=== PATIENT | female | born 1935 | race Caucasian/White ===

== ENCOUNTER → 2017-02-11 | Outpatient (CLI) | payer MEDICARE, OTHER ==
[~2017-02-11] MED LIST: OMNIPAQUE 350 MG/ML, 100ML BOTTLE ONE
== END | disposition home or self-care (01) ==
LOC: CFH 08:47
PROVIDERS: ATTEND Specialist
DX: R19.00 Intra-abdominal and pelvic swelling, mass and lump, unspecified site (principal)
CPT/HCPCS: 74177; Q9967

== ENCOUNTER → 2017-06-03 | Outpatient (CLI) | payer MEDICARE, OTHER | END | disposition home or self-care (01) | LOC: RAD 16:36 | PROVIDERS: ATTEND Internal Medicine | DX: R22.1 Localized swelling, mass and lump, neck (principal) | CPT/HCPCS: 36415; 71020; 82565 ==

== ENCOUNTER → 2017-06-10 | Outpatient (CLI) | payer MEDICARE, OTHER | END | disposition home or self-care (01) | LOC: CFH 09:00 | PROVIDERS: ATTEND Internal Medicine | DX: R59.0 Localized enlarged lymph nodes (principal); E03.1 Congenital hypothyroidism without goiter | CPT/HCPCS: 70491; Q9967 ==

== ENCOUNTER → 2017-06-29 | Outpatient (CLI) | payer MEDICARE, OTHER | END | disposition home or self-care (01) | LOC: PETCFH 09:06 | PROVIDERS: ATTEND Internal Medicine | DX: R59.1 Generalized enlarged lymph nodes (principal); C80.1 Malignant (primary) neoplasm, unspecified | CPT/HCPCS: 78815; A9552 ==

== ENCOUNTER → 2017-07-19 | Outpatient (CLI) | payer MEDICARE, OTHER ==
[~2017-07-19] MED LIST changes: +LIDOCAINE 1%, 20ML ONE; -OMNIPAQUE 350 MG/ML, 100ML BOTTLE ONE
== END | disposition home or self-care (01) ==
LOC: RAD 09:17
PROVIDERS: ATTEND Internal Medicine
DX: R59.0 Localized enlarged lymph nodes (principal)
CPT/HCPCS: 76942; 88305; J3490

== ENCOUNTER → 2017-11-02 | Outpatient (CLI) | payer MEDICARE, OTHER ==
[~2017-11-02] MED LIST changes: -LIDOCAINE 1%, 20ML ONE; +OMNIPAQUE 350 MG/ML, 150 ML BOTTLE ONE
== END ==
LOC: RAD 13:22
PROVIDERS: ATTEND Internal Medicine
DX: J32.0 Chronic maxillary sinusitis (principal); R59.0 Localized enlarged lymph nodes; C91.10 Chronic lymphocytic leukemia of B-cell type not having achieved remission; Z85.72 Personal history of non-Hodgkin lymphomas
CPT/HCPCS: 70491; 71260; 74177; Q9967

== ENCOUNTER 2017-11-11 10:26 | Day surgery (SDC) | payer MEDICARE, OTHER ==
[~2017-11-11] VITALS: Ht 167.6 cm; Wt 52.6 kg
[2017-11-11] MEDS ORDERED: SODIUM CHLORIDE 0.9% 1,000 ML IV SCH (10:58)
[2017-11-11] MEDS ORDERED: CEFAZOLIN PMX 1GM/50ML 50 ML IV ONE (11:00)
[2017-11-11 11:26] VITALS: BP 113/69
[2017-11-11] MEDS ORDERED: HYDR-879 PO (11:39)
[2017-11-11] MEDS ORDERED: CELE200C PO (11:39)
[2017-11-11] MEDS ORDERED: ASPI-496 PO (11:39)
[2017-11-11] MEDS ORDERED: TRAM50TA2 PO (11:39)
[2017-11-11] MEDS ORDERED: LOSA100T6 PO (11:39)
[2017-11-11] MEDS ORDERED: ZOLP10TA5 PO (11:39)
[2017-11-11] MEDS ORDERED: LEVO25TA4 PO (11:39)
[2017-11-11] MEDS ORDERED: FLUMAZENIL 0.1 MG/1 ML, 5ML ONE (12:20)
[2017-11-11] MEDS ORDERED: FENTANYL PF 100 MCG/2ML ONE (12:20)
[2017-11-11] MEDS ORDERED: MIDAZOLAM 1 MG/ML, 2ML ONE (12:21)
[2017-11-11] MEDS ORDERED: NALOXONE 1 MG/ML, 2ML ONE (12:21)
[2017-11-11] MEDS ORDERED: LIDOCAINE 2%, 20ML ONE (12:34)
[2017-11-11] MEDS ORDERED: DIPHENHYDRAMINE 50 MG/ML, 1ML ONE (13:20)
== END 2017-11-11 15:50 | disposition home or self-care (01) ==
LOC: OUT 10:26 → EDSTATUS 12:00 → OUT 15:50
PROVIDERS: ATTEND Internal Medicine
DX: C91.10 Chronic lymphocytic leukemia of B-cell type not having achieved remission (principal); I48.91 Unspecified atrial fibrillation; I10 Essential (primary) hypertension
CPT/HCPCS: 36561; 76937; 77001; 99156; 99157; C1788; J0690; J1200; J1642; J2250; J3010; J3490; J7030; J2310

== ENCOUNTER → 2018-03-09 | Outpatient (CLI) | payer MEDICARE, OTHER ==
[~2018-03-09] MED LIST changes: +ASPI-496 PO; +CELE200C PO; +HYDR-879 PO; +LEVO25TA4 PO; +LOSA100T6 PO; -OMNIPAQUE 350 MG/ML, 150 ML BOTTLE ONE; +TRAM50TA2 PO; +ZOLP10TA5 PO
== END | disposition home or self-care (01) ==
LOC: CVU 08:21
PROVIDERS: ATTEND Internal Medicine Cardiovascular Disease
DX: I08.0 Rheumatic disorders of both mitral and aortic valves (principal); I48.0 Paroxysmal atrial fibrillation
CPT/HCPCS: 93306

== ENCOUNTER → 2018-08-09 | Outpatient (CLI) | payer MEDICARE, OTHER ==
[~2018-08-09] MED LIST changes: +HYDR-3622 PO; -HYDR-879 PO; -LOSA100T6 PO; +LOSA100T7 PO; +OMNIPAQUE 350 MG/ML, 100ML BOTTLE ONE
[2018-08-09 09:51] LABS: CREATININE 1.03 mg/dL (0.55-1.02)
== END | disposition home or self-care (01) ==
LOC: RAD 08:27
PROVIDERS: ATTEND Internal Medicine
DX: R59.0 Localized enlarged lymph nodes (principal); C83.08 Small cell B-cell lymphoma, lymph nodes of multiple sites
CPT/HCPCS: 36415; 71260; 74177; 82565; Q9967

== ENCOUNTER 2018-09-07 10:01 | Day surgery (SDC) | payer MEDICARE, OTHER ==
[~2018-09-07] VITALS: Ht 165.1 cm; Wt 57.5 kg
[~2018-09-07 10:01] MED LIST changes: -OMNIPAQUE 350 MG/ML, 100ML BOTTLE ONE
[2018-09-07 10:49] VITALS: BP 135/73
[2018-09-07] MEDS ORDERED: SODIUM CHLORIDE 0.9% 1,000 ML IV SCH (11:00)
[2018-09-07] MEDS ORDERED: LIDOCAINE-MPF 1%, 5ML ONE ×3 (11:42)
[2018-09-07] MEDS ORDERED: FENTANYL PF 100 MCG/2ML ONE (11:45)
[2018-09-07] MEDS ORDERED: FLUMAZENIL 0.1 MG/1 ML, 5ML ONE (11:45)
[2018-09-07] MEDS ORDERED: MIDAZOLAM 1 MG/ML, 5ML ONE (11:45)
[2018-09-07] MEDS ORDERED: NALOXONE 1 MG/ML, 2ML ONE (11:45)
== END 2018-09-07 13:30 | disposition home or self-care (01) ==
LOC: OUT 10:01
PROVIDERS: ATTEND Pathology Hematology
DX: Z45.02 Encounter for adjustment and management of automatic implantable cardiac defibrillator (principal); C83.08 Small cell B-cell lymphoma, lymph nodes of multiple sites; I10 Essential (primary) hypertension; Z87.891 Personal history of nicotine dependence; Z79.899 Other long term (current) drug therapy
CPT/HCPCS: 36590; 77001; 99156; 99157; J2250; J3010; J2310

== ENCOUNTER 2019-05-17 09:09 | Outpatient (CLI) | payer MEDICARE, OTHER ==
[~2019-05-17 09:09] MED LIST changes: +LOSA100T14 PO; -LOSA100T7 PO
[2019-05-18 09:09] LABS: CHOL/HDL RATIO 2.1; LDL/HDL RATIO 0.9 (0.5-3.0)
== END 2019-05-17 23:59 | disposition home or self-care (01) ==
LOC: PETCFH 09:09
PROVIDERS: ATTEND Pathology Hematology
DX: C83.03 Small cell B-cell lymphoma, intra-abdominal lymph nodes (principal); E78.5 Hyperlipidemia, unspecified; R59.0 Localized enlarged lymph nodes
CPT/HCPCS: 78815; A9552; 36415; 80061

== ENCOUNTER 2019-06-05 09:49 | Outpatient (CLI) | payer MEDICARE, OTHER | END 2019-06-05 23:59 | disposition home or self-care (01) | LOC: CFH 09:49 | PROVIDERS: ATTEND Nurse Practitioner Family | DX: M11.262 Other chondrocalcinosis, left knee (principal); G89.29 Other chronic pain ==

== ENCOUNTER 2019-06-18 12:32 | Outpatient (CLI) | payer MEDICARE, OTHER | END 2019-06-18 23:59 | disposition home or self-care (01) | LOC: CFH 12:32 | PROVIDERS: ATTEND Nurse Practitioner Family | DX: S82.145A Nondisplaced bicondylar fracture of left tibia, initial encounter for closed fracture (principal); M71.22 Synovial cyst of popliteal space [Baker], left knee; M25.462 Effusion, left knee; X58.XXXA Exposure to other specified factors, initial encounter; Y93.89 Activity, other specified; Y92.89 Other specified places as the place of occurrence of the external cause; Y99.8 Other external cause status ==

== ENCOUNTER 2019-08-27 08:50 | Outpatient (CLI) | payer MEDICARE, OTHER ==
[2019-08-27] MEDS ORDERED: OMNIPAQUE 350 MG/ML, 100ML BOTTLE ONE (11:24)
== END 2019-08-27 23:59 | disposition home or self-care (01) ==
LOC: RAD 08:50
PROVIDERS: ATTEND Pathology Hematology
DX: R59.0 Localized enlarged lymph nodes (principal); R91.1 Solitary pulmonary nodule; N28.1 Cyst of kidney, acquired; K76.89 Other specified diseases of liver
CPT/HCPCS: 74177; Q9967

== ENCOUNTER 2019-09-04 11:31 | Outpatient (CLI) | payer MEDICARE, OTHER | END 2019-09-04 23:59 | disposition home or self-care (01) | LOC: PETCFH 11:31 | PROVIDERS: ATTEND Pathology Hematology | DX: I88.0 Nonspecific mesenteric lymphadenitis (principal); I65.29 Occlusion and stenosis of unspecified carotid artery; J34.1 Cyst and mucocele of nose and nasal sinus; I70.0 Atherosclerosis of aorta; C83.03 Small cell B-cell lymphoma, intra-abdominal lymph nodes | CPT/HCPCS: 78815; A9552; 93017; A9502 ==

== ENCOUNTER 2020-04-16 14:21 | Outpatient (CLI) | payer MEDICARE, OTHER ==
[2020-04-16] MEDS ORDERED: OMNIPAQUE 350 MG/ML, 100ML BOTTLE ONE (15:42)
== END 2020-04-16 23:59 | disposition home or self-care (01) ==
LOC: CFH 14:21
PROVIDERS: ATTEND Pathology Hematology
DX: C83.03 Small cell B-cell lymphoma, intra-abdominal lymph nodes (principal); K76.0 Fatty (change of) liver, not elsewhere classified; K76.89 Other specified diseases of liver; Z90.710 Acquired absence of both cervix and uterus
CPT/HCPCS: 74177; Q9967